=== PATIENT | male | born 1960 | race Caucasian/White ===

== ENCOUNTER → 2019-08-22 | Outpatient (CLI) | payer OTHER ==
--- NOTE | 2019-08-22 14:47 | US ---
EXAMINATION TYPE: US abdomen complete DATE OF EXAM: 08/22/2019 COMPARISON: NONE CLINICAL HISTORY: R10.10 Upper abdominal pain, unspecified. RUQ pain noted when bending over after fa ll occurred, and drinks beers daily per patient history EXAM MEASUREMENTS: Liver Length: 18.8 cm Gallbladder Wall: 0.2 cm CBD: 0.7 cm Spleen: 10.2 cm Right Kidney: 10.6 x 5.5 x 4.8 cm Left Kidney: 11.0 x 5.8 x 5.0 cm Pancreas: hyperechoic Liver: hyperechoic to right renal cortex suggests fatty liver with attenuation noted posteriorly; en larged as size is greater than 18.0cm. Gallbladder: wnl Evidence for sonographic Payne's sign: no CBD: wnl Spleen: wnl Right Kidney: No hydronephrosis or masses seen Left Kidney: No hydronephrosis or masses seen Upper IVC: wnl Abd Aorta: ectatic appearance is noted throughout and intimal wall thickening is noted distally and into common iliac arteries, but size is wnl. Visualized liver is heterogeneously hyperechoic. Evaluation for focal masses suboptimal due to the he terogeneity. IMPRESSION: Possible mild hepatomegaly with fatty infiltration of liver suspected. No acute findings identified.
== END ==
LOC: RADUSWWP 09:32
PROVIDERS: ATTEND Family Medicine
DX: R10.10 Upper abdominal pain, unspecified (principal)
CPT/HCPCS: 76700

== ENCOUNTER → 2019-09-30 | Outpatient (CLI) | payer OTHER ==
--- NOTE | 2019-09-30 12:00 | CTL ---
EXAMINATION TYPE: CT Low Dose Lung DATE OF EXAM ORDERED: 09/30/2019 HISTORY: Nicotine dependence, personal history smoking. Lung cancer screening CT DLP: 136.[address] CTDI: 3.3 mGy Automated exposure control for dose reduction was used. SCREENING VISIT: 1 COMPARISON: None TECHNIQUE: Low dose computed tomography scan was performed through the chest at 1 mm thick sections a nd reconstructed images in the coronal plane at [address] DIAGNOSTIC QUALITY: Satisfactory FINDINGS: LUNG NODULES: Left upper lobe shows a calcified nodule on axial image 110. In the right upper lobe on axial image #78 groundglass 3 mm nodule is present, axial image 64 shows a 2 to 3 mm indeterminate n odule medially. LUNGS: COPD: Severity: Mild Fibrosis: Severity: Mild Lymph nodes: Nonenlarged Other findings: None RIGHT PLEURAL SPACE: Effusion: None Calcification: None Thickening: None Pneumothorax: None LEFT PLEURAL SPACE: Effusion: None Calcification: None Thickening: None Pneumothorax: None HEART: Heart Size: Normal Coronary calcification: Mild Pericardial effusion: None OTHER FINDINGS: Upper abdomen: Liver shows low attenuation likely due to hepatic steatosis. There is a small hiatal h ernia. Bony thorax: Multilevel spondylosis present visualized spine. Supraclavicular region: Unremarkable Other: IMPRESSION: Benign FOLLOW UP CT CHEST RECOMMENDATION: [address] LUNG RAD: 2
== END | disposition home or self-care (01) ==
LOC: RADCTMAIN 10:48
PROVIDERS: ATTEND Physician Assistant
DX: Z12.2 Encounter for screening for malignant neoplasm of respiratory organs (principal); F17.210 Nicotine dependence, cigarettes, uncomplicated

== ENCOUNTER → 2020-06-11 | Outpatient (CLI) | payer OTHER ==
--- NOTE | 2020-06-11 09:30 | NM ---
EXAMINATION TYPE: NM hepatobiliary w EF DATE OF EXAM: 06/11/2020 COMPARISON: Ultrasound dated 08/22/2019 HISTORY: Right upper quadrant pain TECHNIQUE: After the intravenous administration of 4.08 mCi Tc 99m Mebrofenin hepatobiliary scintigra phy is performed. Immediate images post injection. FINDINGS: There is satisfactory initial accumulation of tracer by the liver. The gallbladder is visualized wit hin 8 minutes. The small bowel activity is noted within 12 minutes. At one hour 8 ounces of oral en sure plus is given to mimic CCK and gallbladder ejection fraction is calculated at 72 %, in the liza l range. Therefore there is no scintigraphic evidence of cystic or common bile duct obstruction to s uggest acute cholecystitis or gallbladder dyskinesia. IMPRESSION: Exam is within normal limits.
== END | disposition home or self-care (01) ==
LOC: RADNMMAIN 06:47
PROVIDERS: ATTEND Physician Assistant
DX: R10.11 Right upper quadrant pain (principal)
CPT/HCPCS: 78226; A9537

== ENCOUNTER → 2020-12-07 | Outpatient (CLI) | payer OTHER ==
--- NOTE | 2020-12-07 07:49 | CTL ---
EXAMINATION TYPE: CT Low Dose Lung DATE OF EXAM ORDERED: 12/07/2020 COMPARISON: 09/30/2019 HISTORY: . Low Dose CT Lung Screening CT DLP: 134.[address] CTDI: 3.4 mGy IV CONTRAST USED: None. SCREENING VISIT: First visit COMPARISON: None. TECHNIQUE: Low dose computed tomography scan was performed through the chest at 1 millimeter thick se ctions and reconstructed images in the coronal plane at [address] DIAGNOSTIC QUALITY: Satisfactory FINDINGS: LUNG NODULES: Stable calcified nodule left upper lobe image 95. Stable 2 mm groundglass nodular densi ty right upper lobe image 56. Stable 2 mm nodular density right upper lobe medially image 47. No miranda tional nodules seen. LUNGS: COPD: Severity: Mild Fibrosis: Severity: Mild Lymph nodes: Subcentimeter lymph nodes seen. Other findings: None RIGHT PLEURAL SPACE: Effusion: None Calcification: None Thickening: None Pneumothorax: None LEFT PLEURAL SPACE: Effusion: None Calcification: None Thickening: None Pneumothorax: None HEART: Heart Size: Mildly enlarged Coronary calcification: Mild Pericardial effusion: None OTHER FINDINGS: Upper abdomen: Small hiatal hernia. Hepatic steatosis. Bony thorax: Degenerative changes Supraclavicular region: No significant abnormalityOther: No significant abnormalityI IMPRESSION: Stable benign-appearing nodules. FOLLOW UP CT CHEST RECOMMENDATION: Follow-up screening in one year. Smoking cessation recommended. CT LUNG RAD: LUNG RAD CATEGORY 2
== END | disposition home or self-care (01) ==
LOC: RADCTMAIN 07:02
PROVIDERS: ATTEND Family Medicine
DX: Z12.2 Encounter for screening for malignant neoplasm of respiratory organs (principal); R91.8 Other nonspecific abnormal finding of lung field
CPT/HCPCS: 71271

== ENCOUNTER → 2021-08-08 | Outpatient (CLI) | payer OTHER ==
--- NOTE | 2021-08-08 10:26 | CT ---
EXAMINATION TYPE: CT abdomen pelvis wo con DATE OF EXAM: 08/08/2021 COMPARISON: HISTORY: RUQ pain CT DLP: 884.2 mGycm Examination of the solid and hollow viscera is limited given the lack of contrast. FINDINGS: LUNG BASES: No evidence for nodule. No evidence for infiltrate. LIVER/GB: There is evidence of hepatic steatosis. The gallbladder is unremarkable. No space-occupying hepatic lesion. PANCREAS: No pancreatic mass identified. No inflammatory process seen. SPLEEN: No evidence for splenomegaly. No intrasplenic lesions seen. ADRENALS: No adrenal nodules identified. No evidence for thickening. KIDNEYS: No evidence for renal mass. No nephrolithiasis. No hydronephrosis. Mild diffuse urinary blad gilmar wall thickening may reflect cystitis. BOWEL: Appendix has a normal appearance. No evidence of bowel obstruction. No inflammatory process. Lymph nodes: No evidence for adenopathy greater than 1 cm. Abdominal aorta: Atheromatous changes seen. No evidence for aneurysm. Genital organs: No significant abnormality. Other: Fat-containing inguinal hernias noted. IMPRESSION: 1. Correlate for urinary bladder cystitis. 2. Hepatic steatosis.
== END | disposition home or self-care (01) ==
LOC: RADCTMAIN 08:28
PROVIDERS: ATTEND Physician Assistant
DX: K76.0 Fatty (change of) liver, not elsewhere classified (principal)
CPT/HCPCS: 74176

== ENCOUNTER → 2022-07-10 | Outpatient (CLI) | payer OTHER ==
--- NOTE | 2022-07-10 15:09 | CTL ---
EXAMINATION TYPE: CT Low Dose Lung DATE OF EXAM ORDERED: 07/10/2022 HISTORY: Personal tobacco use. Lung cancer screening CT DLP: 137.[address] CTDI: 3.70 mGy Automated exposure control for dose reduction was used. SCREENING VISIT: Subsequent follow-up COMPARISON: 12/07/2020 TECHNIQUE: Low dose computed tomography scan was performed through the chest at 1 mm thick sections a nd reconstructed images in the coronal plane at [address] DIAGNOSTIC QUALITY: Satisfactory FINDINGS: LUNG NODULES: None. LUNGS: COPD: Severity: None Fibrosis: Severity: None Lymph nodes: None Other findings: There is a pneumatocele within the left lung RIGHT PLEURAL SPACE: Effusion: None Calcification: None Thickening: None Pneumothorax: None LEFT PLEURAL SPACE: Effusion: None Calcification: None Thickening: None Pneumothorax: None HEART: Heart Size: Normal Coronary calcification: Moderate Pericardial effusion: None OTHER FINDINGS: Upper abdomen: Normal Bony thorax: Normal Supraclavicular region: Normal Other: Ascending thoracic aorta at the level the main pulmonary artery measures 4.2 cm. The main pul monary artery at the bifurcation measures 3.2 cm. IMPRESSION: 1. No suspicious changes to suggest primary or metastatic neoplasm. 2. Ascending thoracic aortic aneurysm of 4.[address] CHEST RECOMMENDATION: Low-dose CT chest [address] LUNG RAD: 2
== END | disposition home or self-care (01) ==
LOC: RADCTMAIN 08:20
PROVIDERS: ATTEND Physician Assistant
DX: Z12.2 Encounter for screening for malignant neoplasm of respiratory organs (principal); I71.21 Aneurysm of the ascending aorta, without rupture; Z87.891 Personal history of nicotine dependence
CPT/HCPCS: 71271

== ENCOUNTER → 2024-03-05 | Outpatient (CLI) | payer OTHER ==
--- NOTE | 2024-03-05 09:48 | CTL ---
EXAMINATION TYPE: CT Low Dose Lung DATE OF EXAM ORDERED: 03/05/2024 HISTORY: Current smoker, 33 pack-year history. Lung cancer screening CT DLP: 145.[address] CTDI: 3.7 mGy Automated exposure control for dose reduction was used. SCREENING VISIT: Follow-up COMPARISON: CT low dose lung 07/10/2022, 12/07/2020, 09/30/2019. TECHNIQUE: Low dose computed tomography scan was performed through the chest at 1 mm thick sections a nd reconstructed images in multiple planes at 1 mm and [address] DIAGNOSTIC QUALITY: Satisfactory FINDINGS: Nodules: Left upper lobe 3.2 mm calcified granuloma. Left lower lobe 5.2 mm pulmonary nodule (series 6, image 51). Retrospectively this is stable dating b ack to 2019. Stable right upper lobe 5 mm pulmonary nodule (series 4, image 88). LUNGS: COPD: Severity: Minimal Fibrosis: Severity: None Lymph nodes: None Other findings: Pneumatocele again demonstrated within the left lung. RIGHT PLEURAL SPACE: Effusion: None Calcification: None Thickening: None Pneumothorax: None LEFT PLEURAL SPACE: Effusion: None Calcification: None Thickening: None Pneumothorax: None HEART: Heart Size: Normal Coronary Calcification: Mild to moderate Pericardial Effusion: None OTHER FINDINGS: Upper abdomen: Liver is diffusely hypoattenuating. Bony thorax: No acute process. Multilevel degenerative disc disease. Supraclavicular region: None Other: Mild atherosclerotic calcification of the aorta and its branches. Similar aneurysm dilatation of the ascending thoracic aorta measuring up to 4.2 cm and the aortic root measuring up to 4.1 cm. No extension into the aortic arch. The descending thoracic aorta measures up to 3.2 cm. IMPRESSION: 1. Stable pulmonary nodules. No new or enlarging pulmonary nodules. 2. Stable aneurysmal dilatation of the ascending thoracic aorta and aortic root. 3. Hepatic steatosis. CT LUNG RAD AND CT CHEST RECOMMENDATION: Lung-Rad 2 Benign Appearance or Behavior: Continue annual sc reening with LDCT in 12 months. S Modifier (other clinically significant findings): S
== END | disposition home or self-care (01) ==
LOC: RADCTMAIN 07:28
PROVIDERS: ATTEND Family Medicine
DX: Z12.2 Encounter for screening for malignant neoplasm of respiratory organs (principal); F17.210 Nicotine dependence, cigarettes, uncomplicated; R91.8 Other nonspecific abnormal finding of lung field; I71.21 Aneurysm of the ascending aorta, without rupture; K76.0 Fatty (change of) liver, not elsewhere classified
CPT/HCPCS: 71271

== ENCOUNTER 2025-03-01 19:13 | Inpatient (IN) | payer OTHER, MEDICARE ==
[2025-03-01] MEDS ORDERED: LORazepam 1 MG TAB PO PRN ×3 (19:21)
[2025-03-01] MEDS ORDERED: LORazepam 1 MG/0.5 ML VIAL IV PRN ×3 (19:21)
[2025-03-01] MEDS ORDERED: LORazepam 0.5 MG TAB PO PRN (19:21)
--- NOTE | 2025-03-01 19:26 | ED ---
Weakness HPI - General Chief complaint: Weakness Stated complaint: Weakness Time Seen by Provider: 03/01/25 19:18 Source: patient, RN notes reviewed, old records reviewed Limitations: no limitations - History of Present Illness Initial comments: This is a 64-year-old male presenting after prolonged recent hospitalization, patient presents today for elevated blood sugar altered mental status not feeling well. Patient has no travel history or sick contacts, no history of known diagnosis of diabetes patient did take her blood sugar at home and it was in the 300s to 400s MD Complaint: generalized weakness, lack of energy -: days(s) Location: generalized Severity: severe Severity scale (1-10): 9 Consistency: constant Improves with: none Worsens with: none - Related Data Home Medications Medication Instructions Recorded Confirmed cloNIDine HCL 0.1 mg PO BID 05/01/23 03/02/25 Losartan/Hydrochlorothiazide 1 tab PO DAILY 03/02/25 03/02/25 [Losartan-Hctz 100-25 mg Tab] Pantoprazole [Protonix] 40 mg PO DAILY 03/02/25 03/02/25 Rosuvastatin [Crestor] 20 mg PO DAILY 03/02/25 03/02/25 Allergies Allergy/AdvReac Type Severity Reaction Status Date / Time No Known Allergies Allergy Verified 03/02/25 07:40 Review of Systems ROS Statement: Those systems with pertinent positive or pertinent negative responses have been documented in the HPI. ROS Other: All systems not noted in ROS Statement are negative. Past Medical History Past Medical History: Hyperlipidemia, Hypertension History of Any Multi-Drug Resistant Organisms: None Reported Past Surgical History: No Surgical Hx Reported Past Anesthesia/Blood Transfusion Reactions: No Reported Reaction Smoking Status: Current every day smoker General Exam Limitations: no limitations General appearance: alert, in no apparent distress Head exam: Present: atraumatic, normocephalic, normal inspection Eye exam: Present: normal appearance, PERRL, EOMI. Absent: scleral icterus, conjunctival injection, periorbital swelling ENT exam: Present: normal exam, mucous membranes moist Neck exam: Present: normal inspection. Absent: tenderness, meningismus, lymphadenopathy Respiratory exam: Present: normal lung sounds bilaterally. Absent: respiratory distress, wheezes, rales, rhonchi, stridor Cardiovascular Exam: Present: regular rate, normal rhythm, normal heart sounds. Absent: systolic murmur, diastolic murmur, rubs, gallop, clicks GI/Abdominal exam: Present: soft, normal bowel sounds. Absent: distended, tenderness, guarding, rebound, rigid Extremities exam: Present: normal inspection, full ROM, normal capillary refill. Absent: tenderness, pedal edema, joint swelling, calf tenderness Back exam: Present: normal inspection Neurological exam: Present: alert, oriented X3, CN II-XII intact Psychiatric exam: Present: normal affect, normal mood Skin exam: Present: warm, dry, intact, normal color. Absent: rash Course Vital Signs 03/01/25 03/01/25 03/01/25 19:16 21:00 23:15 Temperature 98 F 98.6 F Pulse Rate 74 70 66 Respiratory 18 18 15 Rate Blood Pressure 131/76 129/87 154/87 O2 Sat by Pulse 94 L 94 L 92 L Oximetry 03/02/25 00:37 Temperature Pulse Rate 78 Respiratory 16 Rate Blood Pressure 140/78 O2 Sat by Pulse 94 L Oximetry - Reevaluation(s) Reevaluation #1: 03/01/25 20:25 Medical records reviewed Reevaluation #2: 03/01/25 20:25 Patient has no significant change in symptoms Reevaluation #3: 03/01/25 20:26 Patient informed of results questions answered Reevaluation #4: Was pt. sent in by a medical professional or institution (Dr. PA, EARLY INTERVENTION SPECIALIST, urgent care, hospital, or [facility]...) When possible be specific @ -no Did you speak to anyone other than the patient for history (EMS, parent, family, police, friend...)? What history was obtained from this source @ -no Did you review nursing and triage notes (agree or disagree)? Why? @ -agree Are old charts reviewed (outside hosp., previous admission, EMS record, old EKG, old radiological studies, urgent care reports/EKG's, [facility] records)? Report findings @ -yes Differential Diagnosis (chest pain, altered mental status, abdominal pain women, abdominal pain men, vaginal bleeding, weakness, fever, dyspnea, syncope, headache, dizziness, GI bleed, back pain, seizure, CVA, palpatations, mental health, musculoskeletal)? @ -prior EKG interpreted by me (3pts min.). @ -yes X-rays interpreted by me (1pt min.). @ -yes negative for acute disease CT interpreted by me (1pt min.). @ -yes negative for acute disease U/S interpreted by me (1pt. min.). @ -no What testing was considered but not performed or refused? (CT, X-rays, U/S, labs)? Why? @ -none What meds were considered but not given or refused? Why? @ -none Did you discuss the management of the patient with other professionals (professionals i.e. , PA, EARLY INTERVENTION SPECIALIST, lab, RT, psych nurse, social media editor, radiator fitter, te acher, detention officer, pillowcase sewer)? Give summary @ -no Was smoking cessation discussed for >3mins.? @ -no Was critical care preformed (if so, how long)? @ -no Were there social determinants of health that impacted care today? How? (Homelessness, low income, unemployed, alcoholism, drug addiction, transportation, low edu. Level, literacy, decrease access to med. care, prison, rehab)? @ -none Was there de-escalation of care discussed even if they declined (Discuss DNR or withdrawal of care, Hospice)? DNR status @ -no What co-morbidities impacted this encounter? (DM, HTN, Smoking, COPD, CAD, Cancer, CVA, ARF, Chemo, Hep., AIDS, mental health diagnosis, sleep apnea, morbid obesity)? @ -none Was patient admitted / discharged? Hospital course, mention meds given and route, prescriptions, significant lab abnormalities, going to OR and other pertinent info. @ - 64 male with altered mental status weakness elevated blood sugar will admit for new onset diabetes Admitted Undiagnosed new problem with uncertain prognosis? @ -no Drug Therapy requiring intensive monitoring for toxicity (Heparin, Nitro, Insulin, Cardizem)? @ -no Were any procedures done? @ -no Diagnosis/symptom? @ - new onset diabetes Acute, or Chronic, or Acute on Chronic? @ -Acute Uncomplicated (without systemic symptoms) or Complicated (systemic symptoms)? @ -Complicated Side effects of treatment? @ -no Exacerbation, Progression, or Severe Exacerbation? @ -exacerbation Poses a threat to life or bodily function? How? (Chest pain, USA, IL, pneumonia, PE, COPD, DKA, ARF, appy, cholecystitis, CVA, Diverticulitis, Homicidal, Suicidal, threat to staff... and all critical care pts) @ -yes new diabetes Reevaluation #5: Differential Weakness: Hypoglycemia, shock, sepsis, hyponatremia, anemia, infection, IL, ETOH, adverse medicine reaction, overdose, stroke, this is not meant to be an all-inclusive list. - Consultations Consultation #1: Spoke with admitting presents for improvement this patient EKG Findings - EKG Comments: EKG Findings:: EKG sinus 76 IA 153 QRS 169 QTc 474 - EKG Results: EKG: interpreted by FERNANDO Medical Decision Making - Medical Decision Making 64 male with altered mental status weakness elevated blood sugar will admit for new onset diabetes - Lab Data Result diagrams: 03/03/25 03:17 03/03/25 03:17 Lab Results 03/01/25 03/01/25 03/01/25 Range/Units 19:21 19:21 19:24 WBC 11.32 H (4.50-10.00) 10*3/uL RBC 3.88 L (4.40-5.60) 10*6/uL Hgb 12.7 L (13.0-17.0) g/dL Hct 35.9 L (39.6-50.0) % MCV 92.5 (80.0-97.0) fL MCH 32.7 H (27.0-32.0) pg MCHC 35.4 (32.0-37.0) g/dL Plt Count 240 (140-440) 10*3/uL MPV 9.5 (9.5-12.2) fL Immature Gran % (Auto) 1.4 % Neutrophils % 77.2 % Lymphocytes % 12.1 % Monocytes % 7.3 % Eosinophils % 1.6 % Basophils % 0.4 % Immature Gran # 0.16 H (0.00-0.04) 10*3/uL Neutrophils # 8.73 H (1.80-7.70) 10*3/uL Lymphocytes # 1.37 (0.90-5.00) 10*3/uL Monocytes # 0.83 (0.20-1.00) 10*3/uL Eosinophils # 0.18 (0.04-0.35) 10*3/uL Basophils # 0.05 (0.00-0.10) 10*3/uL Sodium 132 L (137-145) mmol/L Potassium 3.6 (3.5-5.1) mmol/L Chloride 95 L (98-107) mmol/L Carbon Dioxide 25 (22-30) mmol/L Anion Gap 12 mmol/L BUN 22 H (9-20) mg/dL Creatinine 1.04 (0.66-1.25) mg/dL Est GFR (CKD-EPI)AfAm 88 (>60 ml/min/1.73 sqM) Est GFR (CKD-EPI)NonAf 76 (>60 ml/min/1.73 sqM) Glucose 416 H (74-99) mg/dL POC Glucose (mg/dL) 445 H (70-110) mg/dL POC Glu Director Of Assisted Living ID Umang Nicholas Calcium 8.5 (8.4-10.2) mg/dL Phosphorus 4.0 (2.5-4.5) mg/dL Magnesium 2.3 (1.6-2.3) mg/dL Total Bilirubin 1.1 (0.2-1.3) mg/dL AST 34 (17-59) U/L ALT 24 (4-49) U/L Alkaline Phosphatase 154 H (38-126) U/L Total Protein 5.6 L (6.3-8.2) g/dL Albumin 3.2 L (3.5-5.0) g/dL Lipase 119 (23-300) U/L Serum Alcohol <10 mg/dL - Radiology Data Radiology results: report reviewed (CT brain C-spine negative for acute disease, CT chest negative for acute disease), image reviewed Disposition Clinical Impression: Dehydration, Weakness, Hyperglycemia Disposition: ADMITTED IP TO THIS HOSP Condition: Fair Is patient prescribed a controlled substance at d/c from ED?: No Time of Disposition: 20:20
[2025-03-01 19:27] LABS: Glucose,Whole Blood 445 mg/dL (70-110)
[2025-03-01] MEDS: SODIUM CHLORIDE 0.9% 1,000 ML IV STA (19:35)
[2025-03-01] MEDS: DEXTROSE 5%-0.45% NACL 1,000 ML IV SCH (19:37)
[2025-03-01 19:42] LABS: Basophils # (A) 0.05 10*3/uL (0.00-0.10); Basophils % (A) 0.4 %; Eosinophils # (A) 0.18 10*3/uL (0.04-0.35); Eosinophils % (A) 1.6 %; HCT 35.9 % (39.6-50.0); HGB 12.7 g/dL (13.0-17.0); Lymphocytes # (A) 1.37 10*3/uL (0.90-5.00); Lymphocytes % (A) 12.1 %; MCH 32.7 pg (27.0-32.0); MCHC 35.4 g/dL (32.0-37.0); MCV 92.5 fL (80.0-97.0); Monocytes # (A) 0.83 10*3/uL (0.20-1.00); Monocytes % (A) 7.3 %; Neutrophils # (A) 8.73 10*3/uL (1.80-7.70); Neutrophils % (A) 77.2 %; Platelet Count 240 10*3/uL (140-440); RBC 3.88 10*6/uL (4.40-5.60); RDW 12.1 % (11.5-14.5); WBC 11.32 10*3/uL (4.50-10.00)
[2025-03-01 20:08] LABS: ALT 24 U/L (4-49); AST 34 U/L (17-59); African American GFR (CKD) 88 (>60 ml/min/1.73 sqM); Albumin 3.2 g/dL (3.5-5.0); Alkaline Phosphatase 154 U/L (38-126); Anion Gap 12 mmol/L; Blood Urea Nitrogen 22 mg/dL (9-20); Calcium 8.5 mg/dL (8.4-10.2); Carbon Dioxide 25 mmol/L (22-30); Chloride 95 mmol/L (98-107); Glucose 416 mg/dL (74-99); Lipase 119 U/L (23-300); Magnesium 2.3 mg/dL (1.6-2.3); Non-African American GFR(CKD) 76 (>60 ml/min/1.73 sqM); Potassium 3.6 mmol/L (3.5-5.1); Sodium 132 mmol/L (137-145); Total Protein 5.6 g/dL (6.3-8.2)
[2025-03-01] MEDS ORDERED: ONDANSETRON 4 MG/2 ML VIAL IVP PRN (20:27)
[2025-03-01] MEDS ORDERED: NALOXONE 0.4 MG/ML 1 ML VIAL IV PRN (20:27)
[2025-03-01] MEDS ORDERED: MORPHINE SULFATE 4 MG/ML SYRINGE IV PRN (20:27)
[2025-03-01 20:45] LABS: VBG PCO2 51.0 mmHg (37-51); VBG PH 7.38 (7.31-7.41)
[2025-03-01 20:46] LABS: VBG HCO3 27.0 mmol/L (24-28)
[2025-03-01] MEDS: SODIUM CHLORIDE 0.9% 1,000 ML IV SCH (20:57)
[2025-03-01 21:07] LABS: Glucose,Whole Blood 404 mg/dL (70-110)
[2025-03-01 21:09] LABS: Barbiturate Screen,Urine Not Detected (NotDetected); Benzodiazepines Screen,Urine Detected (NotDetected); Opiate Screen,Urine Not Detected (NotDetected); Oxycodone Screen, Urine Not Detected (NotDetected); Phencyclidine Screen,Urine Not Detected (NotDetected); Tricyclic Antidepressant,Urine Not Detected (NotDetected); Urn Cannabinoid Scrn Not Detected (NotDetected)
[2025-03-01] MEDS: INSULIN REGULAR 100 UNIT/ML VIAL (IM/SQ) SQ ONE (22:02)
[2025-03-01] MEDS: SODIUM CHLORIDE 0.9% 1,000 ML IV ONE (22:03)
[2025-03-01 23:08] LABS: Glucose,Whole Blood 386 mg/dL (70-110)
[2025-03-02] MEDS: INSULIN REGULAR 100 UNIT/ML VIAL (IV) IV ONE (00:08)
[2025-03-02 00:41] LABS: Glucose,Whole Blood 277 mg/dL (70-110)
--- NOTE | 2025-03-02 02:12 | HP ---
HISTORY AND PHYSICAL HISTORY OF PRESENT ILLNESS: This is a 64-year-old white male came in with extreme dizziness and weakness. Sugars in the 500s at which time we admitted him, adult onset of diabetes and recent pancreatitis, which triggered his sugar to go up home without any medicines from recent pancreatitis flare. HOME MEDICATIONS: Include, 1. Chlorthalidone 25 daily. 2. Klonopin 0.1 b.i.d. 3. Lisinopril 40 daily. 4. Metoprolol 50 daily. ALLERGIES: Negative. REVIEW OF SYSTEMS: A 14-point review of systems otherwise negative. PAST MEDICAL HISTORY: Hypertension, dyslipidemia. SOCIAL HISTORY: Currently every day smoker. PHYSICAL EXAMINATION: VITAL SIGNS: Stable, afebrile. CARDIOVASCULAR: S1, S2. LUNGS: Transmitted upper sounds. GI: Soft. HEMATOLOGY: Negative Homans. PSYCH: Fair mood and affect. NEUROLOGIC: Alert and oriented x3. ASSESSMENT/PLAN: 1. Uncontrolled diabetes mellitus. 2. Nicotine addiction. 3. Chronic obstructive pulmonary disease. 4. Leukocytosis of unclear etiology. 5. Koipc-li-iqzxitj anemia. 6. Hyponatremia. 7. Weakness. 8. Hyperglycemia. Prognosis guarded. Negative for alcohol. Lipase 119. Please see further orders. Prognosis is guarded. MMODL / IJN: [id number] /
[2025-03-02 03:18] LABS: Basophils # (A) 0.05 10*3/uL (0.00-0.10); Basophils % (A) 0.4 %; Eosinophils # (A) 0.20 10*3/uL (0.04-0.35); Eosinophils % (A) 1.6 %; HCT 34.9 % (39.6-50.0); HGB 12.0 g/dL (13.0-17.0); Lymphocytes # (A) 1.36 10*3/uL (0.90-5.00); Lymphocytes % (A) 11.1 %; MCH 31.8 pg (27.0-32.0); MCHC 34.4 g/dL (32.0-37.0); MCV 92.6 fL (80.0-97.0); Monocytes # (A) 0.69 10*3/uL (0.20-1.00); Monocytes % (A) 5.7 %; Neutrophils # (A) 9.80 10*3/uL (1.80-7.70); Neutrophils % (A) 80.3 %; Platelet Count 239 10*3/uL (140-440); RBC 3.77 10*6/uL (4.40-5.60); RDW 12.1 % (11.5-14.5); WBC 12.21 10*3/uL (4.50-10.00)
[2025-03-02 03:41] LABS: ALT 22 U/L (4-49); AST 33 U/L (17-59); African American GFR (CKD) >90 (>60 ml/min/1.73 sqM); Albumin 2.9 g/dL (3.5-5.0); Alkaline Phosphatase 143 U/L (38-126); Anion Gap 10 mmol/L; Blood Urea Nitrogen 18 mg/dL (9-20); Calcium 8.7 mg/dL (8.4-10.2); Carbon Dioxide 27 mmol/L (22-30); Chloride 96 mmol/L (98-107); Glucose 217 mg/dL (74-99); Magnesium 2.2 mg/dL (1.6-2.3); Non-African American GFR(CKD) >90 (>60 ml/min/1.73 sqM); Potassium 3.2 mmol/L (3.5-5.1); Sodium 133 mmol/L (137-145); Total Protein 5.1 g/dL (6.3-8.2)
[2025-03-02 06:06] LABS: Glucose,Whole Blood 258 mg/dL (70-110)
[2025-03-02] MEDS: metFORMIN 500 MG TAB PO SCH (07:05)
[2025-03-02] MEDS: METOPROLOL SUCCINATE (ER) 50 MG TAB.ER.24H PO SCH (10:18)
[2025-03-02] MEDS: THIAMINE 100 MG/ML 2 ML VIAL IVP SCH (10:50)
[2025-03-02 11:30] LABS: Glucose,Whole Blood 337 mg/dL (70-110)
[2025-03-02] MEDS ORDERED: DEXTROSE 50% SYRINGE 50 ML IVP PRN ×2 (11:54)
[2025-03-02] MEDS: INSULIN LISPRO (HumaLOG) 100 UNIT/ML 10 mL VL SQ SCH (12:09)
--- NOTE | 2025-03-02 13:35 | CT ---
EXAMINATION TYPE: CT brain wo con CT DLP: 1170.7 mGycm, Automated exposure control for dose reduction was used. DATE OF EXAM: 03/02/2025 1:29 PM COMPARISON: None. CLINICAL INDICATION:Male, 64 years old with history of Delayed speech, altered, Delayed speech, AMS TECHNIQUE: Brain: Multiple axial CT images of the brain were obtained without IV contrast. . Coronal and sagitta l reformats reviewed. FINDINGS: Brain: Extra-axial spaces: No abnormal extra-axial fluid collections. Ventricular system: Within normal limits Cerebral parenchyma: No acute intraparenchymal hemorrhage or mass effect. The riley-white junction is well differentiated. Scattered hypoattenuating areas are seen within the periventricular white matte r. Cerebellum: Unremarkable. Mass effect: No evidence of midline shift. Intracranial vasculature: Atherosclerotic calcifications of the intracranial vessels. Soft tissues: Normal. Calvarium/osseous structures: No depressed skull fracture. Paranasal sinuses and mastoid air cells: The mastoid air cells are clear. Complete opacification of t he bilateral maxillary sinuses. Remaining paranasal sinuses are clear. Nasal septal deviation to the right with spurring. Visualized orbits: Orbital contents are intact. IMPRESSION: 1. No acute intracranial process. 2. Nonspecific white matter changes, likely secondary to chronic small vessel ischemic disease. 3. Complete opacification of the bilateral maxillary sinuses suggesting sinusitis. [facility], , 03/02/2025 1:32 PM
[2025-03-02 14:16] LABS: Glucose,Whole Blood 284 mg/dL (70-110)
--- NOTE | 2025-03-02 16:10 | CT ---
EXAMINATION TYPE: CT chest wo con DATE OF EXAM: 03/02/2025 11:31 AM COMPARISON: None. CLINICAL INDICATION: Male, 64 years old with history of copd/htn, COPD/HTN TECHNIQUE: Axial images were obtained at 5 mm thick sections. Reconstructed images are reviewed on [employer] computer in the coronal plane. Contrast used: mL of , (none if empty) Oral contrast used: (none if empty) CT DLP: 445.6 mGycm, Automated exposure control for dose reduction was used. FINDINGS: Portion of the thyroid visualized is normal. There is a small left pleural effusion. Compressive atelectasis or consolidation is in the posterior left lung base. Minimal right pleural fluid is present. There is a 1.2 cm pretracheal lymph node present. The ascending aorta diameter at the level of the m ain pulmonary artery is 4.1 cm. The main pulmonary artery diameter at the bifurcation is 3.5 cm. Mild coronary artery calcifications present. Limited CT sections are obtained through the upper abdomen. Abdomen is essentially unremarkable. IMPRESSION: 1. Minimal bilateral pleural effusions. 2. Enlarged pretracheal lymph node. Follow-up recommended. 3. Ascending thoracic aortic aneurysm 4.1 cm. [facility], Workstation: [facility], 03/02/2025 4:08 PM
[2025-03-02 16:32] LABS: Glucose,Whole Blood 307 mg/dL (70-110)
[2025-03-02 17:38] VITALS: BMI 31.5
[2025-03-02 20:02] LABS: Glucose,Whole Blood 372 mg/dL (70-110)
[2025-03-02] MEDS: ENOXAPARIN 40 MG/0.4 ML SYRINGE SQ SCH (20:26)
[2025-03-02] MEDS: ASPIRIN 81 MG PO SCH (20:26)
--- NOTE | 2025-03-02 20:31 | P.CNNES ---
History of Present Illness Consult date: 03/02/25 Requesting physician: Daniel Koch Reason for Consult: delayed/slurred speech History of Present Illness: Patient is a 64-year-old right-handed male with history of hypertension, hyperlipidemia, came to the hospital by ambulance yesterday at 7:13 PM for altered mental status. Patient's ex- and 2 of their sons were present who provided with a history. Patient developed acute abdominal pain on 02/22/2025 for which he was taken to [facility] in same night he was transferred to [place] and was diagnosed with acute pancreatitis. He was receiving a lot of pain medications. He developed mental confusion while in the hospital, which was attributed to pain medication. He has not been able to walk since then well. He was discharged on 02/27/2025, still not able to walk. Patient's family has noticed that his speech is still slightly off, mental fogginess, weakness not able to walk. His motor functions are off, not like himself. He was noted to have high blood sugars at home at 535 therefore he was brought to the hospital, about 1 day after his discharge. There is no prior history of diabetes. His blood pressures have been running high. His pain has improved, but still not like himself. Denies any focal numbness or tingling, focal weakness or facial droop. They admit to having slight slurred speech. Vital signs on arrival blood pressure 131/76, pulse rate 74 temperature 98.0. Blood test shows WBC 11.32, hemoglobin 12.7, platelets 240. VBG is normal. Sodium 132 potassium 3.6, normal renal functions. Normal hepatic panel. Urine drug screen positive for benzodiazepine. Blood alcohol level less than 10. Hemoglobin A1c 6.8. EKG showed ectopic atrial rhythm. CT head showed no acute intracranial process. Nonspecific white matter changes, likely secondary to chr onic small vessel ischemic disease. Complete opacification of the bilateral maxillary sinuses suggesting sinusitis. CT chest showed minimal bilateral pleural effusion. Enlarged pretracheal lymph node. Follow-up recommended. Ascending thoracic aortic aneurysm 4.1 cm. Patient has hypertension, hyperlipidemia, smokes about 12 cigars Black and milds every day for last 30 years. He drinks 4-5 beers per day. Smokes marijuana. 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 At baseline mentation is completely normal. Home medications include Crestor 20 mg, Protonix 40 mg, clonidine and losartan/HCTZ. Patient does not take any antiplatelet medication at home. Review of Systems All pertinent positive and negative review of system mentioned in the HPI, otherwise unremarkable. Patient denies headache. Past Medical History Past Medical History: Hyperlipidemia, Hypertension History of Any Multi-Drug Resistant Organisms: None Reported Past Surgical History: No Surgical Hx Reported Past Anesthesia/Blood Transfusion Reactions: No Reported Reaction Past Psychological History: No Psychological Hx Reported Smoking Status: Current every day smoker Past Alcohol Use History: Daily Additional Past Alcohol Use History / Comment(s): 8-10 /day? 6pk day beer Past Drug Use History: Marijuana Additional Drug Use History / Comment(s): hold 24 hours prior to procedure Medications and Allergies Home Medications Medication Instructions Recorded Confirmed Type cloNIDine HCL 0.1 mg PO BID 05/01/23 03/02/25 History Losartan/Hydrochlorothiazide 1 tab PO DAILY 03/02/25 03/02/25 History [Losartan-Hctz 100-25 mg Tab] Pantoprazole [Protonix] 40 mg PO DAILY 03/02/25 03/02/25 History Rosuvastatin [Crestor] 20 mg PO DAILY 03/02/25 03/02/25 History Allergies Allergy/AdvReac Type Severity Reaction Status Date / Time No Known Allergies Allergy Verified 03/02/25 07:40 Physical Examination - Vital Signs Vital Signs: Vital Signs Temp Pulse Pulse Resp BP BP Pulse Ox 03/02/25 14:13 97.4 F L 75 16 138/74 93 L 03/02/25 06:51 98 F 73 16 159/83 92 L 03/02/25 02:05 98.2 F 74 16 163/83 95 03/02/25 00:37 78 16 140/78 94 L 03/01/25 23:15 98.6 F 66 15 154/87 92 L 03/01/25 21:00 70 18 129/87 94 L Intake and Output 03/02/25 03/02/25 03/02/25 06:59 14:59 22:59 Output Total 300 Balance -300 Output: Urine 300 Other: # Voids 1 2 Weight 99.79 kg 99.79 kg Patient is an elderly male, appears slightly encephalopathic, but in no acute distress. Patient is alert awake oriented to time place and person. He knows it is February 2025 and that he is in [facility] in [facility]. Patient can name and repeat very well. No aphasia, although patient may have very mild dysarthria. Attention, concentration and fund of knowledge is adequate. Detailed cognitive function testing deferred. On cranial nerve examination, pupils are equal, round and reacting to light, visual leyva are full on confrontation, with no neglect on double simultaneous stimulation. Extraocular muscles are intact with no nystagmus. Face is symmetric, tongue protrudes to the midline. Palatal elevation and sensation normal, hearing and shoulder shrug normal, facial sensation normal. On muscle strength testing, there is no obvious pronator drift, although patient has mild left elbow flexion with pronation. The muscle strength is normal in arms and legs distally and proximally except left hip flexion, which is about 5- . Deep tendon reflexes are symmetric trace in the upper limbs, trace to absent in the lower limbs and plantars downgoing. Sensory to touch is equal with no neglect on double simultaneous stimulation. Cerebellar function showed no ataxia for [id number] testing. No dysdiadochokinesia. No ataxia for [id number] testing on either side. Tone and bulk of muscles normal. Gait deferred.. On general examination, there is no carotid bruit or murmur, S1-S2 audible. Chest is clear on consultation. Abdomen is soft nontender. No organomegaly, bowel sounds present. Peripheral pulses are present. No peripheral edema. Results - Laboratory Findings CBC and BMP: 03/02/25 03:09 03/02/25 03:09 Abnormal Lab Findings: Abnormal Labs 03/01/25 03/01/25 03/01/25 19:21 19:21 19:24 WBC 11.32 H RBC 3.88 L Hgb 12.7 L Hct 35.9 L MCH 32.7 H MPV Immature Gran # 0.16 H Neutrophils # 8.73 H Sodium 132 L Potassium Chloride 95 L BUN 22 H Glucose 416 H POC Glucose (mg/dL) 445 H Hemoglobin A1c Alkaline Phosphatase 154 H Total Protein 5.6 L Albumin 3.2 L U Benzodiazepines Scrn 03/01/25 03/01/25 03/01/25 20:56 21:04 23:05 WBC RBC Hgb Hct MCH MPV Immature Gran # Neutrophils # Sodium Potassium Chloride BUN Glucose POC Glucose (mg/dL) 404 H 386 H Hemoglobin A1c Alkaline Phosphatase Total Protein Albumin U Benzodiazepines Scrn Detected H 03/02/25 03/02/25 03/02/25 00:34 03:09 03:09 WBC 12.21 H RBC 3.77 L Hgb 12.0 L Hct 34.9 L MCH MPV 9.2 L Immature Gran # 0.11 H Neutrophils # 9.80 H Sodium 133 L Potassium 3.2 L Chloride 96 L BUN Glucose 217 H POC Glucose (mg/dL) 277 H Hemoglobin A1c Alkaline Phosphatase 143 H Total Protein 5.1 L Albumin 2.9 L U Benzodiazepines Scrn 03/02/25 03/02/25 03/02/25 03:09 06:05 11:28 WBC RBC Hgb Hct MCH MPV Immature Gran # Neutrophils # Sodium Potassium Chloride BUN Glucose POC Glucose (mg/dL) 258 H 337 H Hemoglobin A1c 6.8 H Alkaline Phosphatase Total Protein Albumin U Benzodiazepines Scrn 03/02/25 03/02/25 14:14 16:29 WBC RBC Hgb Hct MCH MPV Immature Gran # Neutrophils # Sodium Potassium Chloride BUN Glucose POC Glucose (mg/dL) 284 H 307 H Hemoglobin A1c Alkaline Phosphatase Total Protein Albumin U Benzodiazepines Scrn Assessment and Plan Assessment: * Altered mental status, possible due to metabolic encephalopathy. This is likely due to use of pain medication, recent acute illness, possible some degree of alcohol withdrawals. Examination however revealed some mild focal symptoms with ?mild left arm pronation, slurred speech. Need to rule out CVA. * Hypertension * New onset diabetes * Recent history of acute pancreatitis * Hyperlipidemia * Tobacco use * Mild to moderate alcoholism Plan: MRI of the brain without contrast, evaluate for acute CVA Carotid Doppler, rule out stenosis EEG, evaluate for encephalopathy. May need 2D echo, if MRI shows any stroke. Fasting a.m. lipid panel Hemoglobin A1c B12, folate, TSH Optimize control of blood pressure Start aspirin 81 mg daily. Neuro checks every 4 hours Telemetry monitoring rule out any arrhythmia PT, OT, speech therapy Recommend complete tobacco cessation Recommend abstinence from alcoholism. Continue CIWA protocol. DVT prophylaxis: Heparin 5000 units subcu every 8 hours Other medical management as per IM. Neurology will continue to follow. Thank you for the consult. Time with Patient: Greater than 30
--- NOTE | 2025-03-02 21:04 | US ---
EXAMINATION TYPE: US carotid duplex BILAT DATE OF EXAM: 03/02/2025 COMPARISON: NONE CLINICAL INDICATION: Male, 64 years old with history of AMS, slurred speech, weakness; AMS, slurred s peech Additional History: .... TECHNIQUE: Grayscale, color Doppler and spectral Doppler evaluation of the bilateral carotid systems and vertebral arteries. Indirect Doppler criteria was utilized. FINDINGS: EXAM MEASUREMENTS: RIGHT: Peak Systolic Velocity (PSV) cm/sec ----- Right CCA: 61.5 ----- Right ICA: 141 ----- Right ECA: 180 ICA/CCA ratio: 2.3 RIGHT: End Diastole cm/sec ----- Right CCA: 9.5 ----- Right ICA: 20.5 ----- Right ECA: 14.2 LEFT: Peak Systolic Velocity (PSV) cm/sec ----- Left CCA: 84.4 ----- Left ICA: 99.2 ----- Left ECA: 134.0 ICA/CCA ratio: 1.2 LEFT: End Diastole cm/sec ----- Left CCA: 17.2 ----- Left ICA: 12.3 ----- Left ECA: 13.9 VERTEBRALS (direction of flow): Right Vertebral: Antegrade Left Vertebral: Antegrade Rhythm: Normal HEEL BRUSHER NOTES: plaque seen throughout vessels bilaterally. Increased velocity seen within the rig ht ICA Color Doppler imaging shows patency with blood flow throughout the carotid artery. Spectral waveforms are within normal limits. IMPRESSION: Mild to moderate atherosclerotic plaque within the bilateral carotid bifurcations. Right: Less than 50% stenosis of the carotid bifurcation. Left: No hemodynamically significant stenosis. Criteria for Assigning % of Stenosis / Diameter reduction (Estimation based on the indirect measurements of the internal carotid artery velocities (ICA PSV). 1. Normal (no stenosis)=ICA PSV < 180 cm/s: ratio < 2.0: ICA EDV<40 cm/s. 2. Less than 50% stenosis=ICA PSV < 180 cm/s: ratio < 2.0: ICA EDV<40 cm/s. 3. 50 to 69% stenosis=ICA PSV of 180 to 230 cm/s: ration 2.0 ? 4.0: ICA EDV 40-100 cm/s. PSV 125-180 cm/sec and ICA/CCA PSV Ratio ? 2.0 is also consistent with 50-69% stenosis 4. Greater than 70% stenosis to near occlusion= ICA PSV > 230 cm/s: ratio > 4.0: ICA EDV > 100 cm/s. 5. Near occlusion= ICA PSV velocities may be low or undetectable: variable ratio and ICA EDV. 6. Total occlusion=unable to detect flow. [facility], , 03/02/2025 9:02 PM
[2025-03-03] MEDS: metroNIDAZOLE-NS PMX 500 MG in SALINE 1 100ML.BAG IVPB SCH (01:09)
[2025-03-03 06:30] LABS: Glucose,Whole Blood 310 mg/dL (70-110)
[2025-03-03 08:41] LABS: Basophils # (A) 0.04 X 10*3/uL (0.00-0.10); Basophils % (A) 0.3 %; Eosinophils # (A) 0.21 X 10*3/uL (0.04-0.35); Eosinophils % (A) 1.8 %; HCT 35.2 % (39.6-50.0); HGB 11.8 g/dL (13.0-17.0); Immature Grans, Automated 0.80 %; Lymphocytes # (A) 1.50 X 10*3/uL (0.90-5.00); Lymphocytes % (A) 12.5 %; MCH 31.1 pg (27.0-32.0); MCHC 33.5 g/dL (32.0-37.0); MCV 92.9 FL (80.0-97.0); Monocytes # (A) 0.70 X 10*3/uL (0.20-1.00); Monocytes % (A) 5.8 %; NRBC Per 100 WBC 0 X 10*3/uL (0.00-0.01); Neutrophils # (A) 9.44 X 10*3/uL (1.80-7.70); Neutrophils % (A) 78.8 %; Platelet Count 260 X 10*3/uL (140-440); RBC 3.79 X 10*6/uL (4.40-5.60); RDW 12.2 % (11.5-14.5); WBC 11.98 X 10*3/uL (4.50-10.00)
[2025-03-03 09:17] LABS: ALT 20 U/L (10-49); AST 28 U/L (14-35); Albumin 3.0 g/dL (3.8-4.9); Albumin/Globulin Ratio 1.36 Ratio (1.60-3.17); Alkaline Phosphatase 133 U/L (41-126); Anion Gap 14.40 mmol/L (4.00-12.00); BUN/Creat Ratio 16.62 Ratio (12.00-20.00); Blood Urea Nitrogen 13.3 mg/dL (9.0-27.0); Calcium 8.3 mg/dL (8.7-10.3); Carbon Dioxide 24.6 mmol/L (21.6-31.8); Chloride 96 mmol/L (96-109); Cholesterol 71.00 mg/dL (0.00-200.00); Globulin 2.2 g/dL (1.6-3.3); Glucose 284 mg/dL (70-110); HDL Cholesterol 18.10 mg/dL (40.00-60.00); LDL Cholesterol,Calculated 15.9 mg/dL (0.0-131.0); Potassium 3.4 mmol/L (3.5-5.5); Sodium 135 mmol/L (135-145); Total Protein 5.2 g/dL (6.2-8.2); Triglycerides 185.00 mg/dL (0.00-149.00); VLDL Calculation 37.00 mg/dL (5.00-40.00); Vitamin B12 1395.0 pg/mL (200.0-944.0)
[2025-03-03] MEDS: IPRATROPIUM-ALBUTEROL 3 ML NEB INHALATION SCH (09:50)
[2025-03-03] MEDS: THIAMINE 100 MG TAB PO SCH (10:38)
[2025-03-03] MEDS: LOSARTAN-HCTZ 50-12.5 MG 1 EACH TAB PO SCH (10:38)
[2025-03-03 11:21] LABS: Glucose,Whole Blood 284 mg/dL (70-110)
--- NOTE | 2025-03-03 11:40 | MR ---
EXAMINATION TYPE: MR brain wo con DATE OF EXAM: 03/03/2025 10:15 AM COMPARISON: None. CLINICAL INDICATION: Male, 64 years old with history of AMS, slurred speech, weakness, AMS, slurred s peech, weakness TECHNIQUE: Multiplanar, multiecho imaging on a 3.0 Griselda magnet is performed through the brain. Stud y is performed within 24 hours of arrival to the hospital.Multiplanar, multiecho imaging on a 3.0 Lillian la magnet is performed through the brain. Some motion artifact limits some sequences. IV Contrast: mL (None, if empty) FINDINGS: The craniovertebral junction is normal. The pituitary is normal. Optic chiasm appears normal. Diffusion-weighted imaging is performed. No abnormal hyperintensity is present to suggest an acute i ntracranial infarct or acute ischemic change. There is mild periventricular and deep white matter hyperintensity, likely on the basis of chronic wh ite matter ischemic changes. Ventricles and sulci are prominent for the patient age. There is opacification of the bilateral maxillary sinuses. Right septal deviation is noted. Mild muco jessica thickening within ethmoid air cells. Frontal and sphenoid sinuses appear clear. Mastoid air cells appear clear. IMPRESSION: 1. Chronic appearing periventricular white matter ischemic type changes with atrophy. 2. No suspicious acute ischemic changes are evident. [facility], Workstation: [facility], 03/03/2025 11:38 AM
[2025-03-03 16:22] LABS: Glucose,Whole Blood 262 mg/dL (70-110)
[2025-03-03] MEDS: DAPAGLIFLOZIN PROPANEDIOL 10 MG TABLET PO SCH (18:11)
--- NOTE | 2025-03-03 18:15 | P.PN ---
Subjective Progress Note Date: 03/03/25 Patient states he is doing wonderful. Has no complaints. No neurological symptoms. Mentation back to normal. Objective - Vital Signs Vital signs: Vital Signs Temp 97.4 F L 03/03/25 14:00 Pulse 83 03/03/25 14:00 Resp 18 03/03/25 14:00 BP 128/83 03/03/25 14:00 Pulse Ox 95 03/03/25 14:00 FiO2 Intake & Output 03/02/25 03/03/25 03/03/25 18:59 06:59 18:59 Output Total 300 Balance -300 Weight 99.79 kg Output: Urine 300 Other: # Voids 2 - Exam Patient is sitting on the side of the bed, having coffee. He is fully alert and awake. No distress. Patient is alert and orient x 3. He knows it is February 2025 and that he is in [facility] imported on [place]. Speech is slightly hoarse but no aphasia. No dysarthria. Examination nonfocal. Visual leyva are full. Face is symmetric. There is no pronator drift. Strength is normal. No ataxia. - Labs CBC & Chem 7: 03/03/25 03:17 03/03/25 03:17 Labs: Abnormal Lab Results - Last 24 Hours (Table) 03/02/25 03/03/25 03/03/25 Range/Units 20:01 03:17 03:17 WBC 11.98 H (4.50-10.00) X 10*3/uL RBC 3.79 L (4.40-5.60) X 10*6/uL Hgb 11.8 L (13.0-17.0) g/dL Hct 35.2 L (39.6-50.0) % Immature Gran # 0.09 H (0.00-0.04) X 10*3/uL Neutrophils # 9.44 H (1.80-7.70) X 10*3/uL Potassium 3.4 L (3.5-5.5) mmol/L Anion Gap 14.40 H (4.00-12.00) mmol/L Glucose 284 H (70-110) mg/dL POC Glucose (mg/dL) 372 H (70-110) mg/dL Calcium 8.3 L (8.7-10.3) mg/dL Alkaline Phosphatase 133 H (41-126) U/L Total Protein 5.2 L (6.2-8.2) g/dL Albumin 3.0 L (3.8-4.9) g/dL Albumin/Globulin Ratio 1.36 L (1.60-3.17) Ratio Triglycerides 185.00 H (0.00-149.00) mg/dL HDL Cholesterol 18.10 L (40.00-60.00) mg/dL Vitamin B12 1395.0 H (200.0-944.0) pg/mL 03/03/25 03/03/25 03/03/25 Range/Units 06:29 11:19 16:20 WBC (4.50-10.00) X 10*3/uL RBC (4.40-5.60) X 10*6/uL Hgb (13.0-17.0) g/dL Hct (39.6-50.0) % Immature Gran # (0.00-0.04) X 10*3/uL Neutrophils # (1.80-7.70) X 10*3/uL Potassium (3.5-5.5) mmol/L Anion Gap (4.00-12.00) mmol/L Glucose (70-110) mg/dL POC Glucose (mg/dL) 310 H 284 H 262 H (70-110) mg/dL Calcium (8.7-10.3) mg/dL Alkaline Phosphatase (41-126) U/L Total Protein (6.2-8.2) g/dL Albumin (3.8-4.9) g/dL Albumin/Globulin Ratio (1.60-3.17) Ratio Triglycerides (0.00-149.00) mg/dL HDL Cholesterol (40.00-60.00) mg/dL Vitamin B12 (200.0-944.0) pg/mL Assessment and Plan Assessment: * Altered mental status, possible due to metabolic encephalopathy. This is likely due to use of pain medication, recent acute illness, possible some degree of alcohol withdrawals. Acute stroke ruled out. * Hypertension * New onset diabetes * Recent history of acute pancreatitis * Hyperlipidemia * Tobacco use * Mild to moderate alcoholism Plan: MRI of the brain without contrast revealed chronic appearing periventricular white matter ischemic type changes with atrophy. No suspicious acute ischemic changes are evident. I personally reviewed MRI, agree with the findings. Carotid Doppler revealed mild to moderate atherosclerotic plaque within the bilateral carotid bifurcations. Less than 50% stenosis of the carotid bifurcation on the right. No hemodynamically significant stenosis on the left. Antegrade flow in both vertebral arteries. B12 1395, folate 13.0, TSH 2.57, hemoglobin A1c 6.8 Fasting lipid panel with cholesterol 71, LDL 15, HDL 18 and triglycerides 185. EEG was normal awake drowsy and sleep EEG. No focal lateralized or epileptiform activity seen. Optimize control of blood pressure Start aspirin 81 mg daily. Neuro checks every 4 hours Telemetry monitoring rule out any arrhythmia PT, OT, speech therapy Recommend complete tobacco cessation Recommend abstinence from alcoholism. Continue CIWA protocol. DVT prophylaxis: Heparin 5000 units subcu every 8 hours Other medical management as per IM. Neurologically, no other workup indicated. Neurologically clear.
[2025-03-03 21:01] LABS: Glucose,Whole Blood 250 mg/dL (70-110)
--- NOTE | 2025-03-03 22:29 | P.PN ---
Subjective Progress Note Date: 03/03/25 this is a transfer of care to our service Patient presents for follow-up after recent hospitalization for acute pancreatitis approximately 2 weeks ago at a different hospital. Patient was discharged but developed inability to walk, elevated blood pressure, and confusion, prompting transfer to current facility. Patient reports initial confusion upon admission which has now resolved. underwent extentive neurology workup while here,. Currently denies abdominal pain and reports ability to eat without issues. Patient reports having bowel movements, with initial delay of a few days for first bowel movement post-illness, but no current bleeding. Patient expresses desire to return home rather than rehabilitation facility. Patient mentions feeling like struggling again and concerns about mobility. Past Medical History: - Acute pancreatitis (recent, approximately 2 weeks ago) - Newly diagnosed diabetes - Hypertension - History of confusion (resolved) Physical Examination: - General appearance: Patient appears alert and oriented, improved from initial confused state - Abdominal examination: soft lax , no tenderness BS positive , no palpable organomegally - Cardiovascular: Heart sounds assessed, normal S1 S2 RRR no murmurs - Pulmonary: clear to auscultation bilaterally - extremities , no leg edema bilaterally Diagnostic Results: - Head imaging: Results described as looking fine, no new stroke identified 1. Acute pancreatitis, resolving - Supporting findings: - Recent hospitalization for pancreatitis 2 weeks ago - Currently no abdominal pain - Able to tolerate oral intake - Abdominal examination benign - Patient ready for potential discharge if condition remains stable 2. Diabetes mellitus, newly diagnosed - Supporting findings: - New diagnosis during current hospitalization - Requires medication adjustment - Diabetes management education patient is currently on farxiga , metformin and insulin sliding scale 3. Hypertension - Supporting findings: - Elevated blood pressure noted during illness - Requires medication management 4. Mobility concerns - Physical therapy evaluation recommended - Home therapy services to be arranged if patient discharged home - Patient preference for home discharge noted Neuro following Brain MRI , no acute stroke carotid US , no significant stenosis PT/OT 5. Follow-up - Morning team evaluation for discharge readiness - Discharge planning if condition remains stable 6. hyperlipidemia continue crestor 7. Ascending Aortic aneurysm CT chest showed minimal bilateral pleural effusion , enlarged pretracheal LN recommending follow up , an Ascending aortic aneurysm 4.1 cm consider surveillance every 6-24 months 8. Leukocytosis , afebrile no clear source of infection patient is currently on rocephine and flagyl , no clear focus of infection monitor off antibiotics DVT PPX on lovenox 40 mg sc daily Objective - Vital Signs Vital signs: Vital Signs Temp 98.4 F 03/03/25 18:55 Pulse 82 03/03/25 21:02 Resp 16 03/03/25 18:55 BP 122/76 03/03/25 18:55 Pulse Ox 93 L 03/03/25 18:55 FiO2 Intake & Output 03/03/25 03/03/25 03/04/25 06:59 18:59 06:59 Other: Voiding Method Toilet # Voids 3 - Labs CBC & Chem 7: 03/03/25 03:17 03/03/25 03:17 Labs: Abnormal Lab Results - Last 24 Hours (Table) 03/03/25 03/03/25 03/03/25 Range/Units 03:17 03:17 06:29 WBC 11.98 H (4.50-10.00) X 10*3/uL RBC 3.79 L (4.40-5.60) X 10*6/uL Hgb 11.8 L (13.0-17.0) g/dL Hct 35.2 L (39.6-50.0) % Immature Gran # 0.09 H (0.00-0.04) X 10*3/uL Neutrophils # 9.44 H (1.80-7.70) X 10*3/uL Potassium 3.4 L (3.5-5.5) mmol/L Anion Gap 14.40 H (4.00-12.00) mmol/L Glucose 284 H (70-110) mg/dL POC Glucose (mg/dL) 310 H (70-110) mg/dL Calcium 8.3 L (8.7-10.3) mg/dL Alkaline Phosphatase 133 H (41-126) U/L Total Protein 5.2 L (6.2-8.2) g/dL Albumin 3.0 L (3.8-4.9) g/dL Albumin/Globulin Ratio 1.36 L (1.60-3.17) Ratio Triglycerides 185.00 H (0.00-149.00) mg/dL HDL Cholesterol 18.10 L (40.00-60.00) mg/dL Vitamin B12 1395.0 H (200.0-944.0) pg/mL 03/03/25 03/03/25 03/03/25 Range/Units 11:19 16:20 20:59 WBC (4.50-10.00) X 10*3/uL RBC (4.40-5.60) X 10*6/uL Hgb (13.0-17.0) g/dL Hct (39.6-50.0) % Immature Gran # (0.00-0.04) X 10*3/uL Neutrophils # (1.80-7.70) X 10*3/uL Potassium (3.5-5.5) mmol/L Anion Gap (4.00-12.00) mmol/L Glucose (70-110) mg/dL POC Glucose (mg/dL) 284 H 262 H 250 H (70-110) mg/dL Calcium (8.7-10.3) mg/dL Alkaline Phosphatase (41-126) U/L Total Protein (6.2-8.2) g/dL Albumin (3.8-4.9) g/dL Albumin/Globulin Ratio (1.60-3.17) Ratio Triglycerides (0.00-149.00) mg/dL HDL Cholesterol (40.00-60.00) mg/dL Vitamin B12 (200.0-944.0) pg/mL
[2025-03-04 06:18] LABS: Glucose,Whole Blood 189 mg/dL (70-110)
[2025-03-04 07:47] VITALS: BP 134/81; PULSE 67; RESP 18; TEMP 97.9
[2025-03-04 11:31] LABS: Glucose,Whole Blood 250 mg/dL (70-110)
--- NOTE | 2025-03-04 13:29 | P.DS ---
Providers Date of admission: 03/01/25 20:27 Expected date of discharge: 03/04/25 Attending physician: Julien Olivas Consults: 03/02/25 12:02 Consult Physician Routine Consulting Provider: Serjio Cowan Consult Reason/Comments: delayed/slurred speech Do you want consulting provider notified?: Yes Primary care physician: Stated None Hospital Course: 64 year old M with PMH of EtOH abuse, HTN, HLD, GERD presented to the ED for confusion. Recent hospitalization for pancreatitis. In the ED he underwent extensive evaluation. BP 131/76, HR 74, T 98, RR 18, 94% on RA. CBC, CMP s ignificant for WBC 11.32, RBC 3.88, Hg 12.7, Hct 35.9, Na 132, Cl 95, BUN 22, glu 416, alk phos 154, alb 3.2. VBG pH 7.38, pCO2 51. Lipase 119. UDS + benzo. EKG ectopic atrial rhythm with RBBB. Brain CT no acute process with findings of sinusitis. CT chest minimal bilateral pleural effusion, enlarged pretracheal lymph node, AAA 4.1cm. Patient was admitted for further workup and management. Neurology consulted, carotid doppler < 50% stenosis R carotid bifurcation, brain MRI no acute ischemic changes. B12 1395. Folate 13. TSH 2.57. Confusion attributed to alcohol abuse. Mentation gradually improved. Of note, A1c 6.8, newly diagnosed, started on Metformin. 03/04 Patient was seen and examined. Feeling well. Would like to go home. No new labs done today. Discharge Plan: Please refrain from drinking alcohol. Follow up with Dr. Ortiz for routine surveillance of ascending aortic aneurysm. Follow up with your PCP for follow up of enlarged pretracheal lymph node. Started on Metformin for new diagnosis of DM with plans to follow up with PCP for further titration of meds. Follow up with PCP for routine surveillance of carotid stenosis. Patient verbalized understanding of the above plan. General: non toxic, no distress, appears at stated age Derm: warm, dry Head: atraumatic, normocephalic, symmetric Eyes: EOMI, no lid lag, anicteric sclera Mouth: no lip lesion, mucus membranes moist Cardiovascular: S1S2 reg, no murmur Lungs: CTA bilateral, no rhonchi, no rales , no accessory muscle use Ext: no gross muscle atrophy, no edema, no contractures Neuro: no focal neuro deficits Psych: Alert and oriented. Discharge Diagnosis: Acute metabolic encephalopathy likely due to chronic EtOH abuse New onset DM Carotid stenosis AAA Acute pancreatitis Hypertension HLD This complex discharge took 35 minutes to complete. Patient Condition at Discharge: Stable Plan - Discharge Summary New Discharge Prescriptions: New metFORMIN HCL [Glucophage] 1,000 mg PO BID-W/MEALS #120 tab Aspirin 81 mg PO DAILY #30 tab Continue Pantoprazole [Protonix] 40 mg PO DAILY cloNIDine HCL 0.1 mg PO BID Rosuvastatin [Crestor] 20 mg PO DAILY Losartan/Hydrochlorothiazide [Losartan-Hctz 100-25 mg Tab] 1 tab PO DAILY Discharge Medication List cloNIDine HCL 0.1 mg PO BID 05/01/23 [History] Losartan/Hydrochlorothiazide [Losartan-Hctz 100-25 mg Tab] 1 tab PO DAILY 03/02/25 [History] Pantoprazole [Protonix] 40 mg PO DAILY 03/02/25 [History] Rosuvastatin [Crestor] 20 mg PO DAILY 03/02/25 [History] Aspirin 81 mg PO DAILY #30 tab 03/04/25 [Rx] metFORMIN HCL [Glucophage] 1,000 mg PO BID-W/MEALS #120 tab 03/04/25 [Rx] Follow up Appointment(s)/Referral(s): Segun Ortiz MD [STAFF PHYSICIAN] - 1 Week (office is closed at time of dicharge Please call to schedule appointment ) None,Stated [Primary Care Provider] - 1-2 days Activity/Diet/Wound Care/Special Instructions: Please refrain from drinking alcohol Follow up with Dr. Ortiz for routine surveillance of ascending aortic aneurysm Follow up with your PCP for follow up of enlarged pretracheal lymph node Discharge Disposition: HOME SELF-CARE
--- NOTE | 2025-03-04 16:52 | EEG ---
DATE OF SERVICE: 03/03/2025 ELECTROENCEPHALOGRAM REPORT PREAMBLE: This is a 64-year-old male with slurred speech, weakness and altered mental status. EEG FINDINGS: This is a 21-channel digital EEG recorded with video component, utilizing 10/20 international system with referential and bipolar montages. Background consists of well-developed, well regulated, low to moderate amplitude activity in 8 hertz alpha. Background is posterior dominant and reactive to eye opening and closing. Photic driving response was not clearly seen. Drowsiness was seen with appearance of bilaterally symmetric theta frequency rhythm. Stage 2 sleep was also attained with presence of vertex waves, sleep spindles. No focal or generalized epileptiform activity was seen. IMPRESSION: This is a normal EEG during wakefulness, drowsiness, and stage 2 sleep. No focal, lateralized or epileptiform activity was seen. MMARLINE / SANJANAN: [id number] / MTDD
--- NOTE | 2025-03-05 13:53 | CA ---
Transthoracic Echo Report Name: Cesar Isbell Age: 64 Gender: M : 1960 Exam Date: 03/03/2025 14:18 Exam Location: [facility] Ht (in): 71 Wt (lb): 221 Ordering Physician: Danile Koch MD Attending/Referring Phys: Line Fixer Alan Gonsales RDCS Procedure CPT: Indications: dyspnea/tia Cardiac Hx: Technical Quality: Good Contrast 1: Agitated Saline Total Dose (mL): 10 Contrast 2: Total Dose (mL): MEASUREMENTS (Male / Female) Normal Values 2D ECHO LV Diastolic Diameter PLAX 4.6 cm 4.2 - 5.9 / 3.9 - 5.3 cm LV Systolic Diameter PLAX 2.9 cm IVS Diastolic Thickness 1.1 cm 0.6 - 1.0 / 0.6 - 0.9 cm LVPW Diastolic Thickness 1.2 cm 0.6 - 1.0 / 0.6 - 0.9 cm LV Relative Wall Thickness 0.5 RV Internal Dim ED PLAX 3.8 cm LVOT Diameter 1.9 cm LA Systolic Diameter LX 3.9 cm 3.0 - 4.0 / 2.7 - 3.8 cm LV Diastolic Volume MOD BP 102.5 cm??? 67 - 155 / 56 - 104 cm??? LV Systolic Volume MOD BP 41.3 cm??? - / 19 - 49 cm??? LV Ejection Fraction MOD BP 59.7 % >= 55 % LV Cardiac Index MOD BP 1835.6 cm???/min???m??? LV Diastolic Volume MOD 4C 106.0 cm??? LV Systolic Volume MOD 4C 52.6 cm??? LV Ejection Fraction MOD 4C 50.4 % LV Cardiac Index MOD 4C 1603.3 cm???/min???m??? LV Diastolic Length 4C 8.5 cm LV Systolic Length 4C 7.2 cm LV Diastolic Volume MOD 2C 95.7 cm??? LV Systolic Volume MOD 2C 31.8 cm??? LV Ejection Fraction MOD 2C 66.7 % LV Cardiac Index MOD 2C 1914.8 cm???/min???m??? LV Diastolic Length 2C 8.2 cm LV Systolic Length 2C 7.0 cm LA Volume 46.5 cm??? - 58 / 22 - 52 cm??? LA Volume Index 20.5 cm???/m??? 16 - 28 cm???/m??? DOPPLER MV Area PHT 2.5 cm??? Mitral E Point Velocity 44.5 cm/s Mitral A Point Velocity 68.3 cm/s Mitral E to A Ratio 0.7 MV Deceleration Time 308.5 ms TR Peak Velocity 128.2 cm/s TR Peak Gradient 6.6 mmHg FINDINGS Left Ventricle Left ventricular ejection fraction is estimated at 60%. Mild concentric left ventricular hypertrophy. No obvious regional wall motion abnormalities. Left ventricular cavity size normal. Right Ventricle Normal right ventricular size and function. Unable to estimate the right ventricular systolic pressure. Right Atrium Normal right atrial size. Negative agitated saline bubble study for right to left shunt. Left Atrium Normal left atrial size. Mitral Valve Mitral valve thickened. Mitral annular calcification. No mitral stenosis. Trace mitral regurgitation. Aortic Valve Trileaflet aortic valve. Diffuse thickening (sclerosis) of the aortic valve cusps without reduced excursion. No aortic stenosis. Trace aortic regurgitation. Tricuspid Valve Structurally normal tricuspid valve. No tricuspid stenosis. Trace tricuspid regurgitation. Pulmonic Valve Structurally normal pulmonic valve. No pulmonic stenosis. Trace pulmonic regurgitation. Pericardium No pericardial effusion. Aorta Normal size aortic root and proximal ascending aorta. CONCLUSIONS LVEF 60% Mild concentric LVH No obvious regional wall motion abnormality Normal RV size and systolic function Sclerotic aortic valve No significant valvular dysfunction Previewed by: Dr Khang Rosen (Electronically Signed) Final Date: 04 March 2025 12:52
== END 2025-03-04 12:12 | disposition home or self-care (01) | DRG 637 ==
LOC: EC 19:13 → 4SSUR 20:27
PROVIDERS: ADMIT Student in an Organized Health Care Education/Training Program; ATTEND Student in an Organized Health Care Education/Training Program
DX: E11.65 Type 2 diabetes mellitus with hyperglycemia (principal); G93.41 Metabolic encephalopathy; E87.1 Hypo-osmolality and hyponatremia; F10.20 Alcohol dependence, uncomplicated; J44.9 Chronic obstructive pulmonary disease, unspecified; I71.21 Aneurysm of the ascending aorta, without rupture; E86.0 Dehydration; I10 Essential (primary) hypertension; D64.9 Anemia, unspecified; R47.81 Slurred speech; I65.21 Occlusion and stenosis of right carotid artery; I45.10 Unspecified right bundle-branch block; K21.9 Gastro-esophageal reflux disease without esophagitis; E78.5 Hyperlipidemia, unspecified; Z72.0 Tobacco use; Z79.899 Other long term (current) drug therapy
CPT/HCPCS: 36415; 70450; 70551; 71250; 80053; 80061; 80306; 80320; 82607; 82746; 82803; 83036; 83690; 83735; 84100; 84443; 85025; 93005; 93306; 93880; 94640; 94760; 95819; 96360; 96361; 99285